=== PATIENT | female | born 1990 | race Two or more races ===

== ENCOUNTER 2019-10-08 14:39 | Emergency (ER) | payer SELFPAY ==
[~2019-10-08] VITALS: Ht 160 cm; Wt 73.0 kg
[2019-10-08 14:48] VITALS: BP 116/73
[2019-10-08 17:58] LABS: CLARITY URINE CLEAR (CLEAR); COLOR URINE YELLOW (YELLOW); KETONES URINE NEGATIVE (NEGATIVE); LEUKOCYTE ESTERASE URINE 2+ (NEGATIVE); NITRITE URINE NEGATIVE (NEGATIVE); OCCULT BLOOD URINE TRACE (NEGATIVE); PROTEIN URINE 1+ (NEGATIVE); SPECIFIC GRAVITY URINE 1.018 (1.005-1.030); UROBILINOGEN URINE 0.2 E.U./dL (0.2-1.0)
[2019-10-11 04:06] LABS: NEISSERIA GONORRHOEAE NAA Negative (Negative)
== END 2019-10-08 18:34 | disposition home or self-care (01) ==
LOC: ER 14:39
DX: N39.0 Urinary tract infection, site not specified (principal); N76.0 Acute vaginitis
CPT/HCPCS: 81003; 81025; 87077; 87186; 87210; 87491; 87591; 99283